=== PATIENT | female | born 1955 | race African-American/Black ===

== ENCOUNTER 2018-04-23 13:25 | Emergency (ER) | payer MEDICAID, MEDICARE ==
[~2018-04-23] VITALS: Ht 167.6 cm; Wt 80.0 kg
[~2018-04-23 13:25] MED LIST: DILT120C61; HYDR-4135; HYDR25TA; LEVO250T2; [UNRECOGNIZED DRUG - CODE]
[2018-04-23] MEDS ORDERED: ACETAMINOPHEN 325MG TABLET PO ONE (14:45)
[2018-04-23 18:43] VITALS: BP 147/69
== END 2018-04-23 18:52 | disposition home or self-care (01) ==
LOC: ER 13:35
DX: S43.005A Unspecified dislocation of left shoulder joint, initial encounter (principal); S40.022A Contusion of left upper arm, initial encounter; S70.02XA Contusion of left hip, initial encounter; S00.83XA Contusion of other part of head, initial encounter; I12.0 Hypertensive chronic kidney disease with stage 5 chronic kidney disease or end stage renal disease; N18.6 End stage renal disease; Z99.2 Dependence on renal dialysis; Z79.899 Other long term (current) drug therapy; Y08.89XA Assault by other specified means, initial encounter; Y93.89 Activity, other specified; Y92.89 Other specified places as the place of occurrence of the external cause; Y99.8 Other external cause status
CPT/HCPCS: 23650; 70486; 73030; 73090; 73502; 99284; L3670